=== PATIENT | female | born 1965 | race Caucasian/White ===

== ENCOUNTER 2019-10-16 21:15 | Emergency (ER) | payer BC ==
--- NOTE | 2019-10-16 21:26 | ER Document Report ---
ED Medical Screen (RME) - General Chief Complaint: Epigastric Pain Stated Complaint: ABDOMINAL PAIN Time Seen by Provider: 10/16/19 21:23 Mode of Arrival: Ambulatory Information source: Patient Notes: 54-year-old female presented to ED for complaint of epigastric pain that went through to her back that started at 2 PM. She states she took ibuprofen, Pepto- Bismol, and gas pills with no relief. She states she has not had any nausea or vomiting. She states she had a similar episode about a week ago and it got better but this point is not getting any better. She states she does not smoke drink or use any drugs. She only past medical history is a "hole in her eye "with eye surgery done soon after she had to have cataracts on the same eye. She has had hemorrhoid ectomy, deviated septum repair, depression and a fracture to the wrist. She is alert oriented respirations regular nonlabored speaking in full sentences walks with a even steady gait. I have greeted and performed a rapid initial assessment of this patient. A comprehensive ED assessment and evaluation of the patient, analysis of test results and completion of medical decision making process will be conducted by an additional ED providers. Physical Exam - Vital signs Vitals: Temp Pulse Resp BP Pulse Ox 97.9 F 59 L 20 142/82 H 100 10/16/19 21:18 10/16/19 21:18 10/16/19 21:18 10/16/19 21:18 10/16/19 21:18 Course - Vital Signs Vital signs: Temp Pulse Resp BP Pulse Ox 97.9 F 59 L 20 142/82 H 100 10/16/19 21:18 10/16/19 21:18 10/16/19 21:18 10/16/19 21:18 10/16/19 21:18
[2019-10-16] MEDS ORDERED: ONDANSETRON HCL INJ/PF 4 MG/2 ML SDV IV ONE (21:51)
[2019-10-16] MEDS ORDERED: MORPHINE SULFATE 10 MG/ML INJ IV ONE (21:51)
--- NOTE | 2019-10-16 21:51 | RADIOLOGY REPORT (SQ) ---
XR CHEST 2 VIEWS EXAM DATE: 10/16/2019 9:24 PM CDT HISTORY: Epigastric pain bilateral. COMPARISON: None. FINDINGS: The heart size is within normal limits. There is no pulmonary vascular congestion. No consolidation, pleural effusion, or pneumothorax is seen. IMPRESSION: No evidence of acute cardiopulmonary disease.
[2019-10-16] MEDS ORDERED: NORMAL SALINE 500 ML IV ONE (21:52)
--- NOTE | 2019-10-16 21:55 | ER Document Report ---
ED GI/ - General Chief Complaint: Epigastric Pain Stated Complaint: ABDOMINAL PAIN Time Seen by Provider: 10/16/19 21:23 Primary Care Provider: [facility] [Provider Group] - Follow up tomorrow RHONA BARBER MD [Primary Care Provider] - Follow up as needed Mode of Arrival: Ambulatory Notes: Patient is a 54-year-old female that comes emergency department for chief complaint of upper abdominal pain. She states the pain started at around 2 PM, radiates through to her back, and sharp. She denies pain in her chest, difficulty breathing, nausea, vomiting, fever. She denies lower abdominal pain, she reports a normal bowel movement within the past day. She states she took Pepto-Bismol and Excedrin, she also took gas pills, she states she had no relief from this. She states she had the same symptoms a couple of days ago but they resolved. She denies alcohol, smoking, recreational drugs, abdominal surgeries. Past medical history reported to be hyperlipidemia, depression, eye surgery. She denies medical history otherwise. - Related Data Allergies/Adverse Reactions: No Known Allergies Allergy (Verified 10/16/19 21:44) Home Medications: vitamins. simvastatin 10 mg qhs Past Medical History - General Information source: Patient - Social History Smoking Status: Never Smoker Frequency of alcohol use: None Drug Abuse: None Lives with: Family Family History: Reviewed & Not Pertinent Patient has suicidal ideation: No Patient has homicidal ideation: No - Past Medical History Cardiac Medical History: Reports: Hx Hypercholesterolemia Psychiatric Medical History: Reports: Hx Depression Past Surgical History: Reports: Other - Cataract surgery Review of Systems - Review of Systems Constitutional: No symptoms reported EENT: No symptoms reported Cardiovascular: No symptoms reported Respiratory: No symptoms reported Gastrointestinal: See HPI Genitourinary: No symptoms reported Female Genitourinary: No symptoms reported Musculoskeletal: No symptoms reported Skin: No symptoms reported Hematologic/Lymphatic: No symptoms reported Neurological/Psychological: No symptoms reported Physical Exam - Vital signs Vitals: Temp Pulse Resp BP Pulse Ox 97.9 F 59 L 20 142/82 H 100 10/16/19 21:18 10/16/19 21:18 10/16/19 21:18 10/16/19 21:18 10/16/19 21:18 - Notes Notes: GENERAL: Alert, interacts well. No acute distress. HEAD: Normocephalic, atraumatic. EYES: Pupils equal, round, and reactive to light. Extraocular movements intact. ENT: Oral mucosa moist, tongue midline. Oropharynx unremarkable. Airway patent. LUNGS: Clear to auscultation bilaterally, no wheezes, rales, or rhonchi. No respiratory distress. HEART: Regular rate and rhythm. No murmur ABDOMEN: Tender in the epigastric area and mildly in the upper abdomen otherwise. Lower abdomen complete benign. Bowel sounds present. GENITOURINARY: Deferred EXTREMITIES: Moves all 4 extremities spontaneously. No edema, normal radial and dorsalis pedis pulses bilaterally. No cyanosis. BACK: No CVA tenderness. No cervical, thoracic, lumbar midline tenderness. No saddle anesthesia, normal distal neurovascular exam. Moves all extremities in full range of motion. NEUROLOGICAL: Alert and oriented x3. Normal speech. Cranial nerves II through XII grossly intact. PSYCH: Normal affect, normal mood. SKIN: Warm, dry, normal turgor. No rashes or lesions noted. Course - Re-evaluation Re-evalutation: Patient does have epigastric abdominal pain, however she is very well appearing with no signs of distress, she is talkative, alert. Vital signs unremarkable except for borderline hypertension. No fever. CBC unremarkable, chemistry unremarkable, lipase is not elevated. Urinalysis unremarkable. Troponin negative. EKG is normal. Chest x-ray is unremarkable. Symptoms started over 8 hours ago. Based on her recurrence of symptoms, symptoms starting after she ate pork tonight, I suspect this is gallbladder related. Ultrasound does show cholelithiasis but there is no evidence of cholecystitis. Patient is doing much better after medications, she is tolerating p.o. without difficulty. Discussed options. Because patient has not had any vomiting, symptoms are able to be controlled, she can tolerate p.o., and her work-up is reassuring patient will be discharged with medications, close surgical follow- up, and return precautions which were discussed. Patient states understanding and agreement with plan. Stable and well-appearing at time of discharge. - Vital Signs Vital signs: Temp Pulse Resp BP Pulse Ox 97.9 F 59 L 11 L 149/80 H 98 10/16/19 21:18 10/16/19 21:18 10/17/19 00:01 10/17/19 00:01 10/17/19 00:01 - Laboratory Result Diagrams: 10/16/19 21:48 10/16/19 21:48 Laboratory results interpreted by me: 10/16/19 10/16/19 21:48 22:42 Sodium 134.7 L BUN 23 H Est GFR (MDRD) Non-Af 59 L Urine Ketones 20 H - EKG Interpretation by Me Additional EKG results interpreted by me: EKG shows sinus bradycardia at a rate of 56, QTC of 429, normal axis, no T wave inversions or ST segment changes in consecutive leads Discharge - Discharge Clinical Impression: Epigastric pain Cholelithiasis Qualifiers: Cholelithiasis location: gallbladder Cholecystitis presence: without cholecystitis Biliary obstruction: without biliary obstruction Qualified Code(s): K80.20 - Calculus of gallbladder without cholecystitis without obstruction Condition: Stable Disposition: HOME, SELF-CARE Additional Instructions: Your work-up shows gallstones without infection, obstruction, or other concerning findings. I suspect this is the cause of your symptoms recently. Avoid any fatty, fried, greasy foods. This should help reduce or avoid symptoms. If needed you can take the Toradol for pain, this can be combined with the Percocet/Pindall and nausea medication as well. Call the listed surgical clinic referral for close follow-up and additional management. Return if you worsen including severe worsening pain, vomiting, fever, or any other concerning or worsening symptoms. Prescriptions: Ketorolac Tromethamine [Toradol 10 mg Tablet] 10 mg PO Q8HP PRN #24 tablet PRN Reason: Oxycodone HCl/Acetaminophen [Percocet 5-325 mg Tablet] 1 - 2 tab PO TID PRN #12 tablet PRN Reason: Ondansetron [Zofran Odt 4 mg Tablet] 1 - 2 tab PO Q4H PRN #15 tab.rapdis PRN Reason: For Nausea/Vomiting Referrals: RHONA BARBER MD [Primary Care Provider] - Follow up as needed [facility] [Provider Group] - Follow up tomorrow
[2019-10-16 22:02] LABS: ABSOLUTE EOSINOPHILS # (AUTO) 0.2 10^3/uL (0.0-0.6); ABSOLUTE LYMPHOCYTES (AUTO) 1.2 10^3/uL (0.5-4.7); ABSOLUTE MONOCYTES (AUTO) 0.5 10^3/uL (0.1-1.4); ABSOLUTE NEUT (AUTO) 4.6 10^3/uL (1.7-8.2); BASOPHILS % (AUTO) 0.7 % (0-2); EOSINOPHILS % (AUTO) 2.4 % (0-6); HEMATOCRIT 42.1 % (36.0-47.0); HEMOGLOBIN 14.3 g/dL (12.0-15.5); LYMPHOCYTES % (AUTO) 18.3 % (13-45); MEAN CORPUSCULAR HEMOGLOBIN 30.3 pg (27.0-33.4); MEAN CORPUSCULAR HGB CONC 33.9 g/dL (32.0-36.0); MEAN CORPUSCULAR VOLUME 89 fl (80-97); MONOCYTES % (AUTO) 8.1 % (3-13); PLATELET COUNT 164 10^3/uL (150-450); RED BLOOD COUNT 4.72 10^6/uL (3.72-5.28); RED CELL DISTRIBUTION WIDTH 13.2 % (11.5-14.0); SEGMENTED NEUTROPHILS % (AUTO) 70.5 % (42-78); TOTAL CELLS COUNTED % (AUTO) 100 %; WHITE BLOOD COUNT 6.6 10^3/uL (4.0-10.5)
[2019-10-16 22:18] LABS: ALBUMIN 4.1 g/dL (3.5-5.0); ALKALINE PHOSPHATASE 54 U/L (38-126); ANION GAP 9 (5-19); ASPARTATE AMINO TRANSFERASE 24 U/L (14-36); BILIRUBIN,DIRECT 0.2 mg/dL (0.0-0.4); BILIRUBIN,TOTAL 0.4 mg/dL (0.2-1.3); BLOOD UREA NITROGEN 23 mg/dL (7-20); CARBON DIOXIDE 23 mmol/L (22-30); CHLORIDE 103 mmol/L (98-107); GLUCOSE 98 mg/dL (75-110); POTASSIUM 4.2 mmol/L (3.6-5.0); TOTAL PROTEIN 7.1 g/dL (6.3-8.2)
[2019-10-16 23:11] LABS: APPEARANCE,URINE CLEAR; BILIRUBIN,URINE NEGATIVE (NEGATIVE); COLOR,URINE YELLOW; GLUCOSE, URINE NEGATIVE (NEGATIVE); KETONES,URINE 20 mg/dL (NEGATIVE); PROTEIN,URINE NEGATIVE (NEGATIVE); URINE SPECIFIC GRAVITY 1.014; UROBILINOGEN,URINE NEGATIVE mg/dL (<2.0)
[2019-10-16] MEDS ORDERED: FAMOTIDINE 20 MG TABLET PO ONE (23:39)
[2019-10-16] MEDS ORDERED: SUCRALFATE 1 GM TABLET PO ONE (23:39)
[2019-10-16] MEDS ORDERED: OXYCODONE-ACETAMINOPHEN 5-325 MG TABLET PO ONE (23:39)
--- NOTE | 2019-10-16 23:41 | RADIOLOGY REPORT (SQ) ---
CLINICAL INDICATION: sharp upper abd pain. . TECHNIQUE: Real time multiplanar ultrasonographic leger scale imaging was obtained of the right upper quadrant. 105 static images obtained. Additional cine loop COMPARISON: None. CORRELATION: None. FINDINGS: The liver is of normal size contour and echotexture. No evidence of intrahepatic or extrahepatic biliary ductal dilatation. The common bile duct measures 1 millimeters. No filling defects are identified. The gallbladder demonstrate cholelithiasis. No distention. No surrounding inflammatory changes. No evidence of gallbladder wall thickening or edema. Portal vein is patent and appropriate in the visualized portion The midline structures are unremarkable in the visualized portion. . The right kidney measures 11.7 cm. It appears hyperechoic suggesting medical renal disease. Nonstenotic nephrolithiasis, the largest discrete calculus measuring approximately 1 cm IMPRESSION: Cholelithiasis without cholecystitis. No ductal dilatation. Medical renal disease.
[2019-10-16] MEDS ORDERED: KETOROLAC TROMETHAMINE INJ/PF 30 MG/1 ML SDV IV ONE (23:56)
[2019-10-17] MEDS ORDERED: ONDANSETRON ODT 4 MG TAB (6 TAB/ER DISP) PO PRN
[2019-10-17] MEDS ORDERED: HYDROCODONE/ACETAMINOPHEN 5-325 MG (6 TAB/ER DISP) PO PRN
[2019-10-17 00:13] VITALS: BP 149/80
--- NOTE | 2019-10-17 08:31 | EKG REPORT ---
SEVERITY:- NORMAL ECG - SINUS RHYTHM : Confirmed by: Bairon Brown MD 17-Oct-2019 08:31:23
== END 2019-10-17 00:18 | disposition home or self-care (01) ==
LOC: ER 21:15
DX: K80.20 Calculus of gallbladder without cholecystitis without obstruction (principal); R10.13 Epigastric pain; E78.00 Pure hypercholesterolemia, unspecified
CPT/HCPCS: 93005; 99284; 96361; 96374; 96375; 36415; 83690; 85025; 80053; 81001; 84484; 71046; 76705; 93010; J1885; J2270; J2405; J7040